=== PATIENT | female | born 1945 | race Caucasian/White ===

== ENCOUNTER → 2017-08-22 | Outpatient (CLI) | payer MEDICARE ==
[2017-08-22 12:45] LABS: HEMOGLOBIN 13.9 g/dL (12.2-16.2); LYMPH % 38.3 % (10-50.0)
[2017-08-22 14:39] LABS: BUN 27 mg/dL (7-18)
[2017-08-22 14:47] LABS: GFR (ESTIMATED) 44 ML/MIN (59-)
[2017-08-23 09:37] LABS: Creatinine, Urine 91.6 mg/dL (Not Estab.); Microalbumin, Urine <3.0 ug/mL (Not Estab.)
[2017-08-24 08:46] LABS: Vitamin D, 25-Hydroxy 56.4 ng/mL (30.0-100.0)
== END ==
LOC: LAB 12:22
PROVIDERS: Internal Medicine Nephrology
DX: I10 Essential (primary) hypertension (principal); N18.3 Chronic kidney disease, stage 3 (moderate)